=== PATIENT | female | born 1985 | race African-American/Black ===

== ENCOUNTER 2017-04-05 13:10 | Observation (INO) | payer SELFPAY ==
[2017-04-05] MEDS ORDERED: DUONEB 0.5 MG/3 MG ONE (13:22)
[2017-04-05] MEDS ORDERED: PRELONE Elixir 15 MG UDC PO ONE (13:37)
--- NOTE | 2017-04-05 13:38 | DR.SOBA ---
HPI - Time Seen Time seen: 13:30 - Primary Care Physician Primary Care Physician: ELI - HPI Comment HPI Comment: PATIENT WITH INS AND EXP WHEEZING. NO FEVER. COUGHING, PRODUCTIVE. CHEST PAIN PRESENT. - Complaints Chief Complaint Doctors Comments: INCREASING SOB AND WHEEZING. KNOWN ASTHMA PATIENT. Chief Complaint:: DIFF BREATHING WITH ASTHMA COMPLAINTS SINCE TUESDAY. INSP AND EXP WHEEZES Self Treatment fo Chief Complaint: OUT OF NEB MEDS AND STEROIDS - Reviewed Nurses Notes Reviewed: Yes - Source History Provided: Patient - Mode of Arrival Mode of Arrival: Wheelchair - Timing Onset of Chief Complaint: 04/04/17 - Duration Duration: Days - Context Onset:: At Rest PE Risk Factors:: None History of:: Asthma Prehospital Care:: Inhaled B2 - Modifying Factors Worsens:: Nothing Improves:: Nothing - Associated Signs and Symptoms Associated Signs and Symptoms: Wheeze, Cough, Nasal Congestion, Chest Pain - If Chest Pain Quality: Sharp Location: Chest Wall - If Cough Cough: Productive, Yellow PMH - PMH Past Medical History: Yes Past Medical History: Asthma Past Surgical History: Yes Surgical History: , Ortho Surgery - Family History History of Family Medical Conditions: Yes Family Medical History: Diabetes Mellitus, Cancer, [place], Coronary Artery Disease, Heart Failure, Hypertension - Social History Type of Tobacco Use: None Alcohol Use: None Do you use any recreational Drugs:: No Lives With: Family Lives Where: Home - infectious screening In the last 2 months have you had wt loss of >10#?: NO Have you had fever, night sweats or hemotysis?: No Have you traveled outside the country in the last 6 months?: No Isolation: Standard ROS - Review of Systems Constitutional: Weakness, Fatigue. negative: Chills, Fever Eyes: No Symptoms Reported. negative: Eye Pain, Discharge ENTM: Nose Congestion. negative: Ear Pain, Nose Discharge, Throat Pain Respiratoy: Productive Cough, Short of Breath, Wheezing. negative: Hemoptysis Cardiovascular: Chest Pain Gastrointestinal/Abdominal: Nausea Genitourinary: No Symptoms Reported Neurological: Headache, Weakness, Dizziness Musculoskeletal: Muscle Pain Integumentary: No Symptoms Reported Hematologic/Lymphatic: No Symptoms Reported Endocrine: No Symptoms Reported All Other Systems: Reviewed and Negative PE - Vital Signs Vitals: Temperature 99.3 F Pulse Rate [Right] 126 Pulse Rate 124 Respiratory Rate 22 Blood Pressure [Left Arm] 143/95 Blood Pressure 156/107 O2 Sat by Pulse Oximetry 94 - General Limitations: No Limitations General Appearance: Alert - Head Head Exam: Normal Inspection - Eyes Eye exam: Normal Appearance - ENT ENT Exam: Normal External Ear Exam - Neck Neck Exam: Trachea Midline. negative: Tenderness, Meningismus, Lymphadenopathy - Chest Chest Inspection: Symmetric Chest Wall Rise - Respiratory Respiratory Exam: Accessory Muscle Use, Chest Wall Tenderness, Prolonged Expiratory Phase, Respiratory Distress Respiratory Exam: Bilateral Wheezing, Bilateral Rhonchi, Upper Wheezing, Lower Wheezing, Lower Rhonchi - Cardiovascular Cardiovascular Exam: Tachycardia - Abdominal Exam Abdominal Exam: Normal Bowel Sounds, Soft. negative: Tenderness - Extremities Extremities Exam: Normal Inspection - Back Back Exam: Normal Inspection - Neurologic Neurological Exam: Alert, Oriented X3, CN II-XII Intact, Normal Gait, Reflexes Normal. negative: Motor Sensory Deficit - Psychiatric Psychiatric Exam: Anxious - Skin Skin Exam: Normal Color MDM - Additional Information Obtained Additional Information Obtained From: Family - Differential Diagnosis Differential Diagnosis: Asthma, Bronchitis, Pneumonia, Pneumothorax, Respiratory Failure Course - Treatment Treatment: SEE ORDERS. NEB TREATMENT WITH STERIODS IN ED. - Consultation Consultation Comments: DISCUSS PATIENT WITH DR. BOWLING. HE WILL ADMIT PATIENT. - Education/Counseling Education/Counseling: Patient, Family, Education Educated On: Treatment, Diagnosis, Needs for Follow Up ROR - Labs Reviewed Laboratory Results Reviewed?: Yes Result Diagrams: 04/05/17 16:25 04/05/17 16:56 Laboratory: Sample Site Lra 04/05/17 16:10 ABG pH 7.500 (7.35-7.45) H 04/05/17 16:10 ABG pCO2 31.0 mmHg (35.0-45.0) L 04/05/17 16:10 ABG pO2 58.0 mmHg (80.0-100.0) L 04/05/17 16:10 ABG HCO3 24.2 mmol/L (22-26) 04/05/17 16:10 ABG O2 Saturation 92.0 % (90-100) 04/05/17 16:10 ABG Base Excess 1.6 mmol/L (-2.0-2.0) 04/05/17 16:10 Martin Test Pos 04/05/17 16:10 A-a Gradient 53.0 mmHg 04/05/17 16:10 FiO2 21.000 04/05/17 16:10 Blood Gas Comments Irasema well cs 04/05/17 16:10 Sodium 139 mmol/L (136-145) 04/05/17 16:56 Corrected Sodium TNP 04/05/17 16:56 Potassium 3.5 mmol/L (3.5-5.1) 04/05/17 16:56 Chloride 106 mmol/L (98-107) 04/05/17 16:56 Carbon Dioxide 23.0 mmol/L (21-32) 04/05/17 16:56 BUN 8 mg/dL (7-18) 04/05/17 16:56 Creatinine 0.81 mg/dL (0.55-1.02) 04/05/17 16:56 Est GFR (MDRD) Af Amer > 60 (>60) 04/05/17 16:56 Est GFR (MDRD) Non-Af > 60 (>60) 04/05/17 16:56 Glucose 93 mg/dL (65-99) 04/05/17 16:56 Calcium 8.9 mg/dL (8.5-10.1) 04/05/17 16:56 Corrected Calcium TNP 04/05/17 16:56 Magnesium 1.9 mg/dL (1.7-2.9) 04/05/17 16:56 Total Bilirubin 0.30 mg/dL (0.2-1.0) 04/05/17 16:56 AST 17 Units/L (15-37) 04/05/17 16:56 ALT 15 Units/L (12-78) 04/05/17 16:56 Alkaline Phosphatase 78 Units/L (46-116) 04/05/17 16:56 Total Protein 7.5 g/dL (6.4-8.2) 04/05/17 16:56 Albumin 3.5 g/dL (3.4-5.0) 04/05/17 16:56 Globulin 4.0 g/dL (2.5-4.5) 04/05/17 16:56 Albumin/Globulin Ratio 0.9 Ratio (1.1-2.1) L 04/05/17 16:56 Specimen Type Clean catch urine 04/05/17 17:07 Urine Color Yellow (YELLOW) 04/05/17 17:07 Urine Appearance Cloudy (CLEAR) 04/05/17 17:07 Urine pH 7.0 (5.0 - 8.0) 04/05/17 17:07 Ur Specific [place] 1.010 (1.000-1.030) 04/05/17 17:07 Urine Protein 2+ (NEGATIVE) 04/05/17 17:07 Urine Glucose (UA) Negative (NEGATIVE) 04/05/17 17:07 Urine Ketones Negative (NEGATIVE) 04/05/17 17:07 Urine Occult Blood 5+ (NEGATIVE) 04/05/17 17:07 Urine Nitrite Positive (NEGATIVE) 04/05/17 17:07 Urine Bilirubin Negative (NEGATIVE) 04/05/17 17:07 Urine Urobilinogen Normal (NORMAL) 04/05/17 17:07 Ur Leukocyte Esterase 2+ (NEGATIVE) 04/05/17 17:07 Urine RBC 5-10 /HPF (NEGATIVE) 04/05/17 17:07 Urine WBC Tntc /HPF (NEGATIVE) 04/05/17 17:07 Ur Squamous Epith Cells Few /HPF (NEGATIVE) 04/05/17 17:07 Urine Bacteria 4+ /HPF (NEGATIVE) 04/05/17 17:07 Ur Culture Indicated? Yes/culture set up 04/05/17 17:07 - XRAY XRAY Interpreted by: Radiologist XRAY Findings: RPORT DISCUSS WITH PATIENT. - Diagnosis Discharge Problem: Tachycardia Acute asthma exacerbation Qualifiers: Asthma severity: moderate Asthma persistence: persistent Qualified Code(s): J45.41 - Moderate persistent asthma with (acute) exacerbation Acute bronchitis Qualifiers: Bronchitis organism: other organism Qualified Code(s): J20.8 - Acute bronchitis due to other specified organisms Dyspnea Qualifiers: Dyspnea type: acute respiratory distress Qualified Code(s): R06.03 - Acute respiratory distress - Discharge Plan Disposition: 09 ADMITTED INPATIENT Condition: Stable - Follow ups/Referrals - Instructions
[2017-04-05] MEDS ORDERED: ZOFRAN TAB 4 MG PO ONE (13:43)
[2017-04-05] MEDS ORDERED: ZOFRAN TAB 4 MG ONE (13:47)
[2017-04-05] MEDS ORDERED: PRELONE Elixir 15 MG UDC ONE (13:47)
[2017-04-05] MEDS ORDERED: DUONEB 0.5 MG/3 MG NEB ONE ×3 (14:06→15:50)
--- NOTE | 2017-04-05 14:28 | RAD ---
HISTORY: Cough. Single-view of the chest. Comparison: None. Findings: The trachea is midline. The cardiac silhouette is unremarkable. The lungs are hyperinflated with in creased perihilar interstitial opacities and associated bronchial cuffing; findings which can be seen with mild viral bronchitis of the tracheobronchial tree versus small airways disease. Please correla te. However, there is no lobar pneumonia or pulmonary mass. The lungs are otherwise clear without foc al infiltrate or pleural effusion. The bony thorax is unremarkable. IMPRESSION: No pneumothorax or lobar infiltrates observed. Radiographic findings of asthma/small airways disease, as above. Reported By:
[2017-04-05] MEDS ORDERED: VISTARIL PO ONE ×2 (15:26→15:29)
[2017-04-05] MEDS ORDERED: DECADRON JET NEB (RESP USE) NEB ONE ×2 (15:41→15:50)
[2017-04-05 16:20] LABS: ABG ALLEN TEST POS; ABG BASE EXCESS 1.6 mmol/L (-2.0-2.0); ABG HCO3 24.2 mmol/L (22-26)
[2017-04-05 16:55] LABS: ALANINE AMINOTRANSFERASE 15 Units/L (12-78); ALBUMIN 3.5 g/dL (3.4-5.0); ALKALINE PHOSPHATASE 78 Units/L (46-116); ASPARTATE AMINO TRANSFERASE 17 Units/L (15-37); BLOOD UREA NITROGEN 8 mg/dL (7-18); CALCIUM 8.9 mg/dL (8.5-10.1); CHLORIDE 106 mmol/L (98-107); CREATININE 0.81 mg/dL (0.55-1.02); MAGNESIUM 1.9 mg/dL (1.7-2.9); SODIUM 139 mmol/L (136-145); TOTAL PROTEIN 7.5 g/dL (6.4-8.2); eGFR BLACK RACES > 60 (>60); eGFR NON BLACK RACES > 60 (>60)
[2017-04-05] MEDS ORDERED: NS 1000 ML 1,000 ML ONE (17:04)
[2017-04-05 17:19] LABS: BILIRUBIN,URINE NEGATIVE (NEGATIVE); BLOOD/HEMOGLOBIN,URINE 5+ (NEGATIVE); GLUCOSE, URINE NEGATIVE (NEGATIVE); KETONES,URINE NEGATIVE (NEGATIVE); LEUKOCYTE ESTERASE ,URINE 2+ (NEGATIVE); NITRITES,URINE POSITIVE (NEGATIVE); PROTEIN,URINE 2+ (NEGATIVE); UROBILINOGEN,URINE NORMAL (NORMAL)
[2017-04-05 17:27] LABS: APPEARANCE,URINE CLOUDY (CLEAR); BACTERIA,URINE 4+ /HPF (NEGATIVE); COLOR,URINE YELLOW (YELLOW); SQUAMOUS EPITHELIAL CELL,UR FEW /HPF (NEGATIVE)
[2017-04-05 17:31] LABS: BASOPHILS % (AUTO) 0.4 % (0.2-1.0); EOSINOPHILS # (AUTO) 0.1 x10^3/uL (0.0-0.2); EOSINOPHILS % (AUTO) 1.1 % (0.9-2.9); HEMATOCRIT 34.7 % (36.0-47.0); HEMOGLOBIN 11.3 g/dL (12.0-16.0); LYMPHOCYTES # (AUTO) 0.9 X10^3/uL (1.3-2.9); LYMPHOCYTES % (AUTO) 9.4 % (21.0-51.0); MEAN CORPUSCULAR HEMOGLOBIN 22.5 pg (27.0-34.0); MEAN CORPUSCULAR HGB CONC 32.5 g/dL (33.0-35.0); MEAN CORPUSCULAR VOLUME 69.3 fL (80.0-100.0); MEAN PLATELET VOLUME 7.3 fL (7.4-11.0); MONOCYTES # (AUTO) 0.3 x10^3/uL (0.3-0.8); NEUTROPHILS # (AUTO) 8.1 x10^3/uL (2.2-4.8); NEUTROPHILS % (AUTO) 86.1 % (42.0-75.0); PLATELET COUNT 477 X10^3/uL (150.0-450.0); RED BLOOD COUNT 5.01 X10^6/uL (3.5-5.4); WHITE BLOOD COUNT 9.4 X10^3/uL (3.6-10.0)
[2017-04-05 18:14] LABS: ANISOCYTOSIS 1+; HYPOCHROMASIA 1+; MICROCYTOSIS 1+; PLATELET MORPHOLOGY COMMENT NORMAL (NORMAL)
[2017-04-05] MEDS: DUONEB 0.5 MG/3 MG NEB SCH (20:15)
[2017-04-05 20:35] VITALS: BMI 32.4
[2017-04-05] MEDS ORDERED: NS 500 ML IV 500 ML IV ONE (21:29)
[2017-04-05] MEDS: ROCEPHIN VIAL 1 GM 1 GM in NS 50 ML IV + SPIKE MINIBAG* 50 ML IV SCH (21:32)
[2017-04-05] MEDS ORDERED: ZOFRAN INJ 4 MG VIAL IVP PRN (22:04)
[2017-04-06] MEDS: TYLENOL 325 MG TAB PO PRN ×2 (00:30→07:52)
[2017-04-06] MEDS: DUONEB 0.5 MG/3 MG NEB SCH ×4 (00:49→12:02)
[2017-04-06 05:27] LABS: BASOPHILS % (AUTO) 0.4 % (0.2-1.0); EOSINOPHILS % (AUTO) 0.2 % (0.9-2.9); HEMATOCRIT 31.1 % (36.0-47.0); HEMOGLOBIN 10.3 g/dL (12.0-16.0); LYMPHOCYTES # (AUTO) 1.9 X10^3/uL (1.3-2.9); MEAN CORPUSCULAR HEMOGLOBIN 24.7 pg (27.0-34.0); MEAN CORPUSCULAR VOLUME 74.8 fL (80.0-100.0); MEAN PLATELET VOLUME 7.5 fL (7.4-11.0); MONOCYTES # (AUTO) 0.6 x10^3/uL (0.3-0.8); MONOCYTES % (AUTO) 6.4 % (0.0-13.0); NEUTROPHILS # (AUTO) 6.2 x10^3/uL (2.2-4.8); PLATELET COUNT 440 X10^3/uL (150.0-450.0); RED BLOOD COUNT 4.16 X10^6/uL (3.5-5.4); RED CELL DISTRIBUTION WIDTH 16.9 % (11.6-16.5); WHITE BLOOD COUNT 8.8 X10^3/uL (3.6-10.0)
[2017-04-06 05:30] LABS: BLOOD UREA NITROGEN 7 mg/dL (7-18); CALCIUM 8.8 mg/dL (8.5-10.1); CARBON DIOXIDE 22.5 mmol/L (21-32); CHLORIDE 106 mmol/L (98-107); COR NA(FOR HYPERGLY) 142 mmol/L (136-145); CREATININE 0.89 mg/dL (0.55-1.02); SODIUM 142 mmol/L (136-145); eGFR BLACK RACES > 60 (>60); eGFR NON BLACK RACES > 60 (>60)
[2017-04-06 05:44] LABS: HYPOCHROMASIA SLIGHT; PLATELET MORPHOLOGY COMMENT NORMAL (NORMAL)
[2017-04-06 05:45] LABS: ANISOCYTOSIS SLIGHT; MICROCYTOSIS SLIGHT
[2017-04-06] MEDS ORDERED: K-LYTE EFFERVESCENT PO PRN (05:51)
[2017-04-06] MEDS ORDERED: K-DUR TAB 20 MEQ PO PRN (05:51)
[2017-04-06] MEDS ORDERED: POTASSIUM CHLORIDE LIQ 20 MEQ UDC PO PRN (05:51)
[2017-04-06] MEDS ORDERED: K-RIDER 10 MEQ/NS 100 ML 10 MEQ/100 ML BAG IV PRN (05:51)
[2017-04-06] MEDS ORDERED: SOLU-Medrol 40 MG VIAL IVP SCH (09:00)
[2017-04-06] MEDS: ROCEPHIN VIAL 1 GM 1 GM in NS 50 ML IV + SPIKE MINIBAG* 50 ML IV SCH (10:00)
[2017-04-06 12:34] VITALS: BP 132/82
--- NOTE | 2017-04-12 10:51 | DR.CARTERS ---
Short Stay Summary - Admission Date Date of Admission: 04/05/17 - Discharge Date Discharge Date: 04/06/17 - Admission Diagnoses (1) Acute asthma exacerbation Status: Acute (2) Urinary tract infection Status: Acute - Hospital Course Hospital Course: DAY 1 OF STAY: IS A 32 YEAR OLD FEMALE WHO PRESENTED TO THE EMERGENCY ROOM WITH COMPLAINTS OF DIFFICULTY BREATHING, CHEST PAIN, AND WHEEZING THAT BEGAN ONE DAY PRIOR TO ARRIVAL. PATIENT REPORTED A HISTORY OF ASTHMA. ON ARRIVAL TO ER, SHE WAS NOTED WITH INSPIRATORY AND EXPIRATORY WHEEZING AND PRODUCTIVE COUGH. SHE DENIED FEVER. PATIENT REPORTED BEING OUT OF NEBULIZER TREATMENTS AND STEROIDS. ASSOCIATED SYMPTOMS WERE WEAKNESS, FATIGUE, NASAL CONGESTION, NAUSEA, HEADACHE, AND DIZZINESS. ON ARRIVAL, HER VITAL SIGNS WERE 99.3-126-28-94%-156/107. LABS AND XRAY WERE OBTAINED. ABNORMAL LAB VALUES INCLUDE THE FOLLOWING: Hgb 11.3, Hct 34.7, MCV 69.3, MCH 22.5, MCHC 32.5, RDW 17.0, Plt Count 477, Plt Count Comment Increased A, MPV 7.3, A/G Ratio 0.9. ABG REPORTED: PH 7.500, PCO2 31.0, PO2 58.0. URINALYSIS REPORTED: [place] Cloudy, Protein 2+, Occult Blood 5+, Nitrate Positive, Leuk Violeta 2+, RBC 5-10, WBC TNTC , Squam Epith Cells Few, Bacteria 4+. URINE CULTURE WAS OBTAINED. CHEST XRAY REPORTED: No pneumothorax or lobar infiltrates observed. Radiographic findings of asthma/small airways disease. SHE WAS GIVEN PRELONE ELIXIR X 1, ZOFRAN 4MG PO X 1, DUONEB X 3, VISTARIL 25MG PO X 1, DECADRON IN NEB [place] X 1 IN ER. ONLY MILD IMPROVEMENT IN SYMPTOMS WERE NOTED. WE ADMITTED PATIENT FOR FURTHER TREATMENT AND EVALUATION OF ACUTE ASTHMA EXACERBATION, ACUTE BRONCHITIS, AND UTI. WE PLANNED TO FOLLOW UP WITH AM LABS AND CONTINUE TO MONITOR PATIENT. DAY 2 OF STAY: PATIENT IS ALERT AND ORIENTED, SITTING UP IN BED ON MORNING ROUNDS. PATIENT DENIES SHORTNESS OF BREATH AND REPORTS FEELING MUCH BETTER TODAY. ON EXAMINATION, PATIENT CONTINUES WITH WHEEZING. ABDOMEN IS ROUND, SOFT, AND NON-TENDER WITH NORMAL BOWEL SOUNDS NOTED IN ALL QUADRANTS. HER VITAL SIGNS THIS MORNING ARE 128/82. A CBC AND CMP WAS OBTAINED. ABNORMAL LAB VALUES INCLUDE THE FOLLOWING: HGB 10.3, HCT 31.1, POTASSIUM 3.3, GLUCOSE 120. WE PLANNED FOR DISCHARGE. INSTRUCTIONS FOR FOLLOW UP AND MEDICATIONS WERE DISCUSSED WITH PATIENT. SHE VERBALIZED UNDERSTANDING OF ALL ORDERS. NEW PRESCRIPTIONS WERE GIVEN FOR CIPRO 500MG PO BID X 10 DAYS, ALBUTEROL JN TX TID, PROVENTIL INHALER, CLARITIN 10MG PO DAILY, AND A MEDROL DOSE PACK. PATIENT HAS INSTRUCTIONS TO FOLLOW UP IN OUR OFFICE NEXT WEEK. PATIENT DISCHARGED TO HOME WITH FAMILY IN STABLE CONDITION. - Discharge Medications Discharge Medications: Albuterol Sulfate [Proventil HFA Inhaler 6.7 gm] 2 inh IN Q6H PRN #1 each [Rx] Methylprednisolone Dosepak 4Mg [MEDROL DOSEPAK (4 mg tab x 21)] 1 karina PO ONCE # 1 karina 04/05/17 [Rx] Albuterol Neb 2.5MG/ 3Ml [Proventil Neb Tx 0.083% 2.5MG/ 3Ml] 1 nebule INH TID # 90 nebule 04/06/17 [Rx] Ciprofloxacin HCl [CIPRO 500 MG TAB *] 500 mg PO Q12H #20 tab 04/06/17 [Rx] Loratadine [Claritin] 10 mg PO DAILY #30 tab 04/06/17 [Rx] Nebulizer [Aeroneb Go Nebulizer] 1 each MC ONCE #1 each 04/06/17 [Rx] - Discharge Plan Disposition: 01 HOME, SELF-CARE Condition: Stable Prescriptions: Albuterol Neb 2.5MG/ 3Ml [Proventil Neb Tx 0.083% 2.5MG/ 3Ml] 1 nebule INH TID # 90 nebule Albuterol Sulfate [Proventil HFA Inhaler 6.7 gm] 2 inh IN Q6H PRN #1 each PRN Reason: Asthma Symptoms Ciprofloxacin HCl [CIPRO 500 MG TAB *] 500 mg PO Q12H #20 tab Loratadine [Claritin] 10 mg PO DAILY #30 tab Methylprednisolone Dosepak 4Mg [MEDROL DOSEPAK (4 mg tab x 21)] 1 karina PO ONCE # 1 karina Nebulizer [Aeroneb Go Nebulizer] 1 each MC ONCE #1 each - Follow up/Referrals Follow up/Referrals: Geovanna Holly [Nurse Practitioner] - 04/13/17 9:40 am - Instructions Instructions: Smoking Cessation, Tips for Success, [id number], How to Use a Nebulizer, Acute Bronchitis, [id number], Asthma, Acute Bronchospasm Additional Instructions: ACTIVITY TOLERATED. DIET TOLERATED.
== END 2017-04-06 14:00 | disposition home or self-care (01) ==
LOC: ER 13:49 → MED/SURG 18:26
PROVIDERS: ADMIT Internal Medicine; ATTEND Internal Medicine
DX: J45.41 Moderate persistent asthma with (acute) exacerbation (principal); J20.8 Acute bronchitis due to other specified organisms; N39.0 Urinary tract infection, site not specified; R06.02 Shortness of breath; R07.89 Other chest pain; R06.03 Acute respiratory distress; D64.89 Other specified anemias; B96.29 Other Escherichia coli [E. coli] as the cause of diseases classified elsewhere
CPT/HCPCS: 36415; 36600; 71010; 80048; 80053; 81001; 82803; 83735; 84132; 85025; 87086; 87088; 87186; 94640; 94760; 96365; 99284; A4216; A4222; Q0177; S0181; G0378; J0696; J2405; J2920; J7620

== ENCOUNTER 2017-04-15 09:41 | Emergency (ER) | payer SELFPAY ==
[~2017-04-15 09:41] MED LIST: Atrovent NEB TX 0.02% ONE
[2017-04-15] MEDS ORDERED: DUONEB 0.5 MG/3 MG NEB ONE (09:44)
[2017-04-15] MEDS ORDERED: XOPENEX 1.25 MG/3 ML NEBULE NEB ONE (09:45)
[2017-04-15] MEDS ORDERED: SOLU-Medrol 125 MG VIAL IVP ONE (09:45)
[2017-04-15] MEDS ORDERED: PULMICORT NEB TX 0.5 MG NEB ONE (09:46)
--- NOTE | 2017-04-15 09:46 | DR.GENAD ---
HPI - HPI Comment HPI Comment: WORSE SINCE LAST NIGHT. - Complaint/Symptoms Chief Complaint Doctors Comments: INCREASING SOB, WHEEZING AND PRODUCTIVE COUGH TIMES 2 DAYS - Nurses notes reviewed Nurses Notes Review: Yes - Source History Provided: Patient, Family Member - Mode of Arrival Mode of Arrival: Wheelchair - Timing Came on: Suddenly - Duration Duration: Constant Duration: Hours - Severity Severity: Moderate PMH - PMH Past Medical History: Asthma Past Surgical History: Yes Surgical History: , Ortho Surgery - Family History Family Medical History: Diabetes Mellitus, Cancer, [place], Coronary Artery Disease, Heart Failure, Hypertension - Social History Do you use any recreational Drugs:: No ROS - Review of Systems Constitutional: No Symptoms Reported, Fatigue Eyes: No Symptoms Reported ENTM: No Symptoms Reported. negative: Ear Pain, Nose Discharge, Nose Congestion , Throat Pain Respiratoy: Productive Cough, Short of Breath, Wheezing Cardiovascular: Chest Pain Gastrointestinal/Abdominal: No Symptoms Reported Genitourinary: No Symptoms Reported Neurological: No Symptoms Reported Musculoskeletal: No Symptoms Reported Integumentary: No Symptoms Reported Hematologic/Lymphatic: No Symptoms Reported Endocrine: No Symptoms Reported All Other Systems: Reviewed and Negative PE - Vital Signs Vitals: Temperature 98.5 F Pulse Rate [Left Brachial] 123 Pulse Rate 124 Respiratory Rate 20 Blood Pressure [Left Arm] 149/76 Blood Pressure 162/97 O2 Sat by Pulse Oximetry 97 - General Limitations: No Limitations General Appearance: Alert, In Distress - Head Head Exam: Normal Inspection - Eyes Eye exam: Normal Appearance - ENT ENT Exam: Normal External Ear Exam External Ear Exam: Normal External Inspection TM/Canal Exam: Bilateral Normal Nose Exam: Normal Nose Exam Mouth Exam: Normal Inspection Throat Exam: Normal Inspection - Neck Neck Exam: Trachea Midline - Chest Chest Inspection: Symmetric Chest Wall Rise - Respiratory Respiratory Exam: Normal Lung Sounds Bilat Respiratory Exam: Upper Wheezing, Upper Rhonchi, Lower Wheezing, Lower Rhonchi - Cardiovascular Cardiovascular Exam: Regular Rate - Abdominal Exam Abdominal Exam: Normal Bowel Sounds, Soft. negative: Tenderness - Extremities Extremities Exam: Normal Inspection - Back Back Exam: Normal Inspection - Neurologic Neurological Exam: Alert, Oriented X3 - Psychiatric Psychiatric Exam: Anxious - Skin Skin Exam: Normal Color MDM - Additional Information Additional Information Obtained From: Family - Differential Diagnosis Differential Diagnosis: ASTHMA EXACERBATION, BRONCHITIS Course - Treatment Treatment: NEB RX WITH XOPENEX IN ED.SEE ORDERS. STILL TACHYCARDIA AND SOB. - Consultation Consultation Comments: PATIENT ADMITTED TO DR. BOWLING FOR OBS. - Education/Counseling Education/Counseling: Patient, Education Educated On: Treatment, Diagnosis ROR - Labs Reviewed Laboratory Results Reviewed?: Yes Result Diagrams: 04/17/17 04:50 04/17/17 04:50 Laboratory: WBC 9.9 X10^3/uL (3.6-10.0) 04/15/17 09:48 RBC 4.89 X10^6/uL (3.5-5.4) 04/15/17 09:48 Hgb 10.9 g/dL (12.0-16.0) L 04/15/17 09:48 Hct 33.7 % (36.0-47.0) L 04/15/17 09:48 MCV 69.0 fL (80.0-100.0) L 04/15/17 09:48 MCH 22.3 pg (27.0-34.0) L 04/15/17 09:48 MCHC 32.3 g/dL (33.0-35.0) L 04/15/17 09:48 RDW 16.9 % (11.6-16.5) H 04/15/17 09:48 Plt Count 408 X10^3/uL (150.0-450.0) 04/15/17 09:48 Plt Count Comment Adequate (ADEQUATE) 04/15/17 09:48 MPV 7.1 fL (7.4-11.0) L 04/15/17 09:48 Neut % 83.1 % (42.0-75.0) H 04/15/17 09:48 Lymph % 11.2 % (21.0-51.0) L 04/15/17 09:48 [place] % 3.4 % (0.0-13.0) 04/15/17 09:48 Eos % 1.6 % (0.9-2.9) 04/15/17 09:48 Baso % 0.7 % (0.2-1.0) 04/15/17 09:48 Neut # 8.2 x10^3/uL (2.2-4.8) H 04/15/17 09:48 Lymph # 1.1 X10^3/uL (1.3-2.9) L 04/15/17 09:48 [place] # 0.3 x10^3/uL (0.3-0.8) 04/15/17 09:48 Eos # 0.2 x10^3/uL (0.0-0.2) 04/15/17 09:48 Baso # 0.1 X10^3/uL (0.0-0.1) 04/15/17 09:48 Absolute Nucleated RBC 0.1 /100WBC 04/15/17 09:48 Plt Morphology Comment Normal (NORMAL) 04/15/17 09:48 RBC Morphology Abnormal (NORMAL) A 04/15/17 09:48 Hypochromasia 1+ A 04/15/17 09:48 Microcytosis 1+ A 04/15/17 09:48 Sample Site Lr 04/15/17 11:55 ABG pH 7.440 (7.35-7.45) 04/15/17 11:55 ABG pCO2 37.0 mmHg (35.0-45.0) 04/15/17 11:55 ABG pO2 68.0 mmHg (80.0-100.0) L 04/15/17 11:55 ABG HCO3 25.1 mmol/L (22-26) 04/15/17 11:55 ABG O2 Saturation 94.0 % (90-100) 04/15/17 11:55 ABG Base Excess 1.1 mmol/L (-2.0-2.0) 04/15/17 11:55 Martin Test Pos 04/15/17 11:55 A-a Gradient 35.0 mmHg 04/15/17 11:55 FiO2 21 04/15/17 11:55 Blood Gas Comments Pt samantha well. cdn/hm 04/15/17 11:55 Sodium 136 mmol/L (136-145) 04/15/17 09:48 Corrected Sodium TNP 04/15/17 09:48 Potassium 4.0 mmol/L (3.5-5.1) 04/15/17 09:48 Chloride 103 mmol/L (98-107) 04/15/17 09:48 Carbon Dioxide 25.0 mmol/L (21-32) 04/15/17 09:48 BUN 8 mg/dL (7-18) 04/15/17 09:48 Creatinine 0.80 mg/dL (0.55-1.02) 04/15/17 09:48 Est GFR (MDRD) Af Amer > 60 (>60) 04/15/17 09:48 Est GFR (MDRD) Non-Af > 60 (>60) 04/15/17 09:48 Glucose 93 mg/dL (65-99) 04/15/17 09:48 Calcium 8.8 mg/dL (8.5-10.1) 04/15/17 09:48 Corrected Calcium TNP 04/15/17 09:48 Total Bilirubin 0.20 mg/dL (0.2-1.0) 04/15/17 09:48 AST 19 Units/L (15-37) 04/15/17 09:48 ALT 16 Units/L (12-78) 04/15/17 09:48 Alkaline Phosphatase 84 Units/L (46-116) 04/15/17 09:48 Total Protein 7.4 g/dL (6.4-8.2) 04/15/17 09:48 Albumin 3.6 g/dL (3.4-5.0) 04/15/17 09:48 Globulin 3.8 g/dL (2.5-4.5) 04/15/17 09:48 Albumin/Globulin Ratio 0.9 Ratio (1.1-2.1) L 04/15/17 09:48 - XRAY XRAY Interpreted by: Radiologist XRAY Findings: REPORT DISCUSS WITH PATIENT. - Diagnosis Discharge Problem: Acute asthma exacerbation, Acute bronchitis, Dyspnea, Tachycardia - Discharge Plan Disposition: ADMITTED INPATIENT Condition: Stable - Follow ups/Referrals - Instructions
[2017-04-15 10:01] VITALS: BMI 32.4
[2017-04-15 10:02] LABS: BASOPHILS # (AUTO) 0.1 X10^3/uL (0.0-0.1); BASOPHILS % (AUTO) 0.7 % (0.2-1.0); EOSINOPHILS # (AUTO) 0.2 x10^3/uL (0.0-0.2); EOSINOPHILS % (AUTO) 1.6 % (0.9-2.9); HEMATOCRIT 33.7 % (36.0-47.0); HEMOGLOBIN 10.9 g/dL (12.0-16.0); LYMPHOCYTES # (AUTO) 1.1 X10^3/uL (1.3-2.9); LYMPHOCYTES % (AUTO) 11.2 % (21.0-51.0); MEAN CORPUSCULAR HEMOGLOBIN 22.3 pg (27.0-34.0); MEAN CORPUSCULAR HGB CONC 32.3 g/dL (33.0-35.0); MEAN PLATELET VOLUME 7.1 fL (7.4-11.0); MONOCYTES # (AUTO) 0.3 x10^3/uL (0.3-0.8); MONOCYTES % (AUTO) 3.4 % (0.0-13.0); NEUTROPHILS # (AUTO) 8.2 x10^3/uL (2.2-4.8); NEUTROPHILS % (AUTO) 83.1 % (42.0-75.0); PLATELET COUNT 408 X10^3/uL (150.0-450.0); RED BLOOD COUNT 4.89 X10^6/uL (3.5-5.4); RED CELL DISTRIBUTION WIDTH 16.9 % (11.6-16.5); WHITE BLOOD COUNT 9.9 X10^3/uL (3.6-10.0)
[2017-04-15] MEDS ORDERED: SOLU-Medrol 125 MG VIAL ONE (10:02)
[2017-04-15 10:11] LABS: HYPOCHROMASIA 1+; MICROCYTOSIS 1+; PLATELET MORPHOLOGY COMMENT NORMAL (NORMAL)
[2017-04-15 10:15] LABS: ALANINE AMINOTRANSFERASE 16 Units/L (12-78); ALBUMIN 3.6 g/dL (3.4-5.0); ALKALINE PHOSPHATASE 84 Units/L (46-116); ASPARTATE AMINO TRANSFERASE 19 Units/L (15-37); BLOOD UREA NITROGEN 8 mg/dL (7-18); CALCIUM 8.8 mg/dL (8.5-10.1); CHLORIDE 103 mmol/L (98-107); SODIUM 136 mmol/L (136-145); TOTAL PROTEIN 7.4 g/dL (6.4-8.2); eGFR BLACK RACES > 60 (>60); eGFR NON BLACK RACES > 60 (>60)
[2017-04-15] MEDS ORDERED: SOLU-Medrol 125 MG VIAL IM ONE (10:20)
--- NOTE | 2017-04-15 11:11 | RAD ---
HISTORY: Asthma exacerbation Study: Single-view of the chest Comparison: 04/05/2017 Findings: The trachea is midline. The cardiac silhouette is unremarkable. Increased perihilar markings and mi ld bronchial wall thickening are noted. Atelectasis and/or infiltrate are noted within the right lowe r lobe. Recommend clinical correlation and continued follow-up as indicated for further evaluation . IMPRESSION: 1. Increased perihilar markings and bronchial wall thickening with right basilar atelectasis and/or infiltrate. Reported By:
[2017-04-15 12:24] LABS: ABG BASE EXCESS 1.1 mmol/L (-2.0-2.0); ABG HCO3 25.1 mmol/L (22-26)
[2017-04-15 12:25] LABS: ABG ALLEN TEST POS; FRACTIONATED INSPIRED OXYGEN 21
[2017-04-15] MEDS ORDERED: DECADRON INJ IM ONE (12:30)
[2017-04-15] MEDS ORDERED: VISTARIL PO ONE ×2 (12:31→12:51)
[2017-04-15] MEDS ORDERED: ROCEPHIN VIAL 1 GM 1 GM in NS 50 ML IV + SPIKE MINIBAG* 50 ML IV ONE (12:32)
[2017-04-15] MEDS ORDERED: NS 1000 ML 1,000 ML ONE (12:50)
[2017-04-15] MEDS ORDERED: ROCEPHIN 1 GM IV PREMIX 50 ML IV ONE (12:51)
[2017-04-15] MEDS: NS 1000 ML 1,000 ML IV SCH (12:58)
[2017-04-15] MEDS: XOPENEX 1.25 MG/3 ML NEBULE NEB SCH ×2 (16:50→20:27)
[2017-04-15] MEDS ORDERED: DUONEB 0.5 MG/3 MG NEB SCH (17:00)
[2017-04-15 21:30] LABS: BILIRUBIN,URINE NEGATIVE (NEGATIVE); BLOOD/HEMOGLOBIN,URINE NEGATIVE (NEGATIVE); GLUCOSE, URINE 4+ (NEGATIVE); KETONES,URINE 2+ (NEGATIVE); LEUKOCYTE ESTERASE ,URINE NEGATIVE (NEGATIVE); NITRITES,URINE NEGATIVE (NEGATIVE); PROTEIN,URINE NEGATIVE (NEGATIVE); UROBILINOGEN,URINE NORMAL (NORMAL)
[2017-04-15] MEDS: CIPRO IV 200 MG PREMIX* 200 MG/100 ML BAG IV SCH (21:33)
[2017-04-15] MEDS: AMBIEN PO PRN (21:33)
[2017-04-15 21:59] LABS: APPEARANCE,URINE CLEAR (CLEAR); BACTERIA,URINE NEGATIVE /HPF (NEGATIVE); COLOR,URINE YELLOW (YELLOW); RBC,URINE 0-3 /HPF (NEGATIVE); SQUAMOUS EPITHELIAL CELL,UR MODERATE /HPF (NEGATIVE)
[2017-04-16] MEDS: PHENERGAN INJ 25 MG IV PRN ×4 (00:40→21:14)
[2017-04-16] MEDS: NS 1000 ML 1,000 ML IV SCH ×2 (05:18→21:10)
[2017-04-16 05:58] LABS: BASOPHILS % (AUTO) 0.2 % (0.2-1.0); HEMATOCRIT 30.2 % (36.0-47.0); HEMOGLOBIN 9.7 g/dL (12.0-16.0); LYMPHOCYTES # (AUTO) 1.4 X10^3/uL (1.3-2.9); LYMPHOCYTES % (AUTO) 6.6 % (21.0-51.0); MEAN CORPUSCULAR HEMOGLOBIN 22.6 pg (27.0-34.0); MEAN CORPUSCULAR HGB CONC 32.1 g/dL (33.0-35.0); MEAN CORPUSCULAR VOLUME 70.2 fL (80.0-100.0); MEAN PLATELET VOLUME 7.8 fL (7.4-11.0); MONOCYTES # (AUTO) 0.9 x10^3/uL (0.3-0.8); MONOCYTES % (AUTO) 4.1 % (0.0-13.0); NEUTROPHILS # (AUTO) 19.6 x10^3/uL (2.2-4.8); NEUTROPHILS % (AUTO) 89.1 % (42.0-75.0); PLATELET COUNT 408 X10^3/uL (150.0-450.0); RED CELL DISTRIBUTION WIDTH 17.1 % (11.6-16.5)
[2017-04-16 06:10] LABS: ALANINE AMINOTRANSFERASE 11 Units/L (12-78); ALBUMIN 3.1 g/dL (3.4-5.0); ALKALINE PHOSPHATASE 81 Units/L (46-116); ASPARTATE AMINO TRANSFERASE 14 Units/L (15-37); BLOOD UREA NITROGEN 8 mg/dL (7-18); CARBON DIOXIDE 20.5 mmol/L (21-32); CHLORIDE 107 mmol/L (98-107); COR CA(FOR HYPOALB) 9.7 mg/dL (8.5-10.1); COR NA(FOR HYPERGLY) 138 mmol/L (136-145); CREATININE 0.79 mg/dL (0.55-1.02); SODIUM 137 mmol/L (136-145); TOTAL PROTEIN 6.7 g/dL (6.4-8.2); eGFR BLACK RACES > 60 (>60); eGFR NON BLACK RACES > 60 (>60)
[2017-04-16 06:31] LABS: PLATELET MORPHOLOGY COMMENT NORMAL (NORMAL)
[2017-04-16] MEDS: XOPENEX 1.25 MG/3 ML NEBULE NEB SCH ×4 (08:00→20:16)
[2017-04-16] MEDS: SOLU-Medrol 40 MG VIAL IVP SCH ×2 (08:54→16:57)
[2017-04-16] MEDS: CIPRO IV 200 MG PREMIX* 200 MG/100 ML BAG IV SCH ×2 (08:54→21:10)
[2017-04-16] MEDS ORDERED: ROCEPHIN VIAL 1 GM 1 GM in NS 50 ML IV + SPIKE MINIBAG* 50 ML IV SCH (09:00)
[2017-04-16] MEDS: MORPHINE SULFATE INJ 2 MG INJ IVP PRN ×2 (14:36→21:14)
[2017-04-16] MEDS ORDERED: SALINE 0.9% 3 ML NEB TX ONE (20:01)
[2017-04-16] MEDS: AMBIEN PO PRN (21:10)
[2017-04-17] MEDS: SOLU-Medrol 40 MG VIAL IVP SCH ×4 (03:16→16:36)
[2017-04-17] MEDS: NS 1000 ML 1,000 ML IV SCH ×2 (04:52→19:18)
[2017-04-17] MEDS: PHENERGAN INJ 25 MG IV PRN ×2 (05:30→14:09)
[2017-04-17] MEDS: MORPHINE SULFATE INJ 2 MG INJ IVP PRN ×3 (05:30→20:24)
[2017-04-17 06:19] LABS: BASOPHILS # (AUTO) 0.1 X10^3/uL (0.0-0.1); BASOPHILS % (AUTO) 0.3 % (0.2-1.0); HEMATOCRIT 28.4 % (36.0-47.0); HEMOGLOBIN 9.1 g/dL (12.0-16.0); LYMPHOCYTES # (AUTO) 3.5 X10^3/uL (1.3-2.9); LYMPHOCYTES % (AUTO) 14.7 % (21.0-51.0); MEAN CORPUSCULAR HEMOGLOBIN 22.5 pg (27.0-34.0); MEAN CORPUSCULAR HGB CONC 32.1 g/dL (33.0-35.0); MEAN CORPUSCULAR VOLUME 70.1 fL (80.0-100.0); MEAN PLATELET VOLUME 7.6 fL (7.4-11.0); MONOCYTES % (AUTO) 4.2 % (0.0-13.0); NEUTROPHILS % (AUTO) 80.8 % (42.0-75.0); PLATELET COUNT 381 X10^3/uL (150.0-450.0); RED BLOOD COUNT 4.05 X10^6/uL (3.5-5.4); RED CELL DISTRIBUTION WIDTH 17.5 % (11.6-16.5); WHITE BLOOD COUNT 23.6 X10^3/uL (3.6-10.0)
[2017-04-17 06:37] LABS: ALANINE AMINOTRANSFERASE 13 Units/L (12-78); ALBUMIN 2.9 g/dL (3.4-5.0); ALKALINE PHOSPHATASE 73 Units/L (46-116); ASPARTATE AMINO TRANSFERASE 9 Units/L (15-37); BLOOD UREA NITROGEN 9 mg/dL (7-18); CALCIUM 8.5 mg/dL (8.5-10.1); CHLORIDE 110 mmol/L (98-107); COR CA(FOR HYPOALB) 9.4 mg/dL (8.5-10.1); CREATININE 0.78 mg/dL (0.55-1.02); SODIUM 141 mmol/L (136-145); TOTAL PROTEIN 6.3 g/dL (6.4-8.2); eGFR BLACK RACES > 60 (>60); eGFR NON BLACK RACES > 60 (>60)
[2017-04-17 06:40] LABS: HYPOCHROMASIA 1+; MICROCYTOSIS 1+; PLATELET MORPHOLOGY COMMENT NORMAL (NORMAL); POIKILOCYTOSIS 1+
--- NOTE | 2017-04-17 07:13 | RAD ---
HISTORY: Shortness of breath Study: Single-view chest Comparison: 04/15/2017 Findings: The trachea is midline. The cardiac silhouette is unremarkable. Discoid atelectasis of the right ba se is noted to be present. Otherwise, the right and left chest are clear. The bony thorax is unremar kable. IMPRESSION: 1. Discoid atelectasis of the right base Reported By:
[2017-04-17] MEDS: CIPRO IV 200 MG PREMIX* 200 MG/100 ML BAG IV SCH ×2 (08:31→20:24)
[2017-04-17] MEDS: ROCEPHIN VIAL 1 GM 1 GM in NS 100 ML IV + SPIKE MINIBAG* 100 ML IV SCH (08:31)
[2017-04-17] MEDS: XOPENEX 1.25 MG/3 ML NEBULE NEB SCH ×4 (08:34→20:17)
--- NOTE | 2017-04-17 19:29 | DR.H&P ---
H&P - History & Physical for Day of: H&P Date: 04/15/17 - Chief Complaint Chief Complaint: SHORT OF BREATH, COUGH - Allergies Allergies/Adverse Reactions: Allergies Allergy/AdvReac Type Severity Reaction Status Date / Time No Known Drug Allergies Allergy Verified 04/05/17 13:26 - History of Present Illness History of Present Illness: IS A 32 YEAR OLD FEMALE WHO PRESENTED TO THE EMERGENCY ROOM WITH COMPLAINTS OF DIFFICULTY BREATHING, PRODUCTIVE COUGH, AND WHEEZING THAT BEGAN TWO DAYS PRIOR TO ARRIVAL. PATIENT REPORTED A HISTORY OF ASTHMA. PATIENT WAS RECENTLY TREATED AND DISCHARGE FROM THE HOSPITAL WITH THE SAME SYMPTOMS. ON ARRIVAL TO ER, SHE WAS NOTED WITH INSPIRATORY AND EXPIRATORY WHEEZING AND PRODUCTIVE COUGH. SHE DENIED FEVER. ON ARRIVAL, HER VITAL SIGNS WERE 98.5-129-32-90%-162/97. LABS AND XRAY WERE OBTAINED. ABNORMAL LAB VALUES INCLUDE THE FOLLOWING: Hgb 10.9, Hct 33.7. ABG REPORTED: PH 7.440, PCO2 37.0, PO2 68.0. CHEST XRAY WAS OBTAINED AND REPORTED INCREASED PERIHILAR MARKINGS AND BRONCHIAL WALL THICKENING WITH RIGHT BASILAR ATELECTASIS AND/OR INFILTRATE. SHE WAS GIVEN NEB TREATMENTS IN ER. ONLY MILD IMPROVEMENT IN SYMPTOMS WERE NOTED. WE ADMITTED PATIENT FOR FURTHER TREATMENT AND EVALUATION OF ACUTE ASTHMA EXACERBATION, ACUTE BRONCHITIS, AND TACHYCARDIA. SHE WAS STARTED ON CIPRO 200MG IV Q12H, SOLU-MEDROL 80MG IV Q8H, AND NORMAL SALINE AT 80ML/HR. WE PLANNED TO FOLLOW UP WITH AM LABS AND CONTINUE TO MONITOR PATIENT. - Past Medical History Past Medical History: Asthma - Past Surgical History Surgical History: , Ortho Surgery - Family History Family Medical History: Diabetes Mellitus, Cancer, [place], Coronary Artery Disease, Heart Failure, Hypertension - Social History Does patient currently use any type of tobacco product: Yes Have you used tobacco products in the last 12 months: Yes Type of Tobacco Use: Cigarettes Does any household member use tobacco: Yes Alcohol Use: None Drug Use: Marijuana - Review of Systems Constitutional: No Symptoms Reported Eyes: No Symptoms Reported ENT: No Symptoms Reported Respiratory: See HPI, Cough, Shortness of Breath, Sputum, Wheezing Cardiovascular: Chest Pain, Other (TACHYCARDIA ) Gastrointestinal: No Symptoms Reported Genitourinary: No Symptoms Reported Musculoskeletal: No Symptoms Reported Skin: No Symptoms Reported Neurological: No Symptoms Reported - Physical Exam Vital Signs: Temperature 98 F Pulse Rate [Left Brachial] 95 Pulse Rate 99 Respiratory Rate 20 Blood Pressure [Left Arm] 152/71 Blood Pressure 162/97 O2 Sat by Pulse Oximetry 98 Oriented: Normal Eyes: Normal Ear: Normal Nose: Normal Throat: Normal Respiratory: Wheezes Throughout Cardiovascular: Tachycardia : Normal Auscultation: Bowel Sounds: Normal Palpation: Normal Tenderness: Normal Skin: Normal Musculoskeletal: Normal Psychiatric: Normal Mood Description: Calm Affect: Normal Speech Pattern: Clear - Assessment/Plan (1) Acute asthma exacerbation Qualifiers: Asthma severity: moderate Asthma persistence: persistent Qualified Code(s ): J45.41 - Moderate persistent asthma with (acute) exacerbation Status: Acute Plan: XOPENEX NEB TX, SOLU-MEDROL 80MG IV Q8H, CONTINUE TO MONITOR (2) Acute bronchitis Qualifiers: Bronchitis organism: unspecified organism Qualified Code(s): J20.9 - Acute bronchitis, unspecified Status: Acute Plan: ROCEPHIN 1GM IV DAILY, CIPRO 200MG IV Q12H, CONTINUE TO MONITOR
[2017-04-17] MEDS: AMBIEN PO PRN (20:23)
[2017-04-18] MEDS: SOLU-Medrol 40 MG VIAL IVP SCH ×2 (02:20→10:29)
[2017-04-18] MEDS: NS 1000 ML 1,000 ML IV SCH (05:13)
[2017-04-18 05:52] LABS: ALANINE AMINOTRANSFERASE 14 Units/L (12-78); ALBUMIN 2.8 g/dL (3.4-5.0); ALKALINE PHOSPHATASE 81 Units/L (46-116); ASPARTATE AMINO TRANSFERASE 14 Units/L (15-37); BLOOD UREA NITROGEN 11 mg/dL (7-18); CALCIUM 8.4 mg/dL (8.5-10.1); CARBON DIOXIDE 21.9 mmol/L (21-32); CHLORIDE 108 mmol/L (98-107); COR CA(FOR HYPOALB) 9.4 mg/dL (8.5-10.1); CREATININE 0.83 mg/dL (0.55-1.02); SODIUM 141 mmol/L (136-145); TOTAL PROTEIN 6.3 g/dL (6.4-8.2); eGFR BLACK RACES > 60 (>60); eGFR NON BLACK RACES > 60 (>60)
--- NOTE | 2017-04-18 06:15 | RAD ---
HISTORY: Shortness of breath Study: Chest AP portable Comparison: 04/17/2017 Findings: The heart is enlarged. No congestive heart failure is noted. No acute alveolar infiltrates or pleural effusions are identified. Bibasilar subsegmental atelectasis is identified. The bony thorax is unrem arkable. IMPRESSION: Cardiomegaly without congestive heart failure Bibasilar subsegmental atelectasis Reported By:
[2017-04-18 06:22] LABS: BASOPHILS # (AUTO) 0.1 X10^3/uL (0.0-0.1); BASOPHILS % (AUTO) 0.3 % (0.2-1.0); HEMATOCRIT 30.1 % (36.0-47.0); HEMOGLOBIN 9.6 g/dL (12.0-16.0); LYMPHOCYTES # (AUTO) 2.4 X10^3/uL (1.3-2.9); LYMPHOCYTES % (AUTO) 10.3 % (21.0-51.0); MEAN CORPUSCULAR HEMOGLOBIN 22.5 pg (27.0-34.0); MEAN CORPUSCULAR HGB CONC 31.9 g/dL (33.0-35.0); MEAN CORPUSCULAR VOLUME 70.6 fL (80.0-100.0); MEAN PLATELET VOLUME 7.7 fL (7.4-11.0); MONOCYTES # (AUTO) 1.2 x10^3/uL (0.3-0.8); NEUTROPHILS # (AUTO) 19.5 x10^3/uL (2.2-4.8); NEUTROPHILS % (AUTO) 84.4 % (42.0-75.0); PLATELET COUNT 382 X10^3/uL (150.0-450.0); RED BLOOD COUNT 4.26 X10^6/uL (3.5-5.4); RED CELL DISTRIBUTION WIDTH 17.5 % (11.6-16.5); WHITE BLOOD COUNT 23.1 X10^3/uL (3.6-10.0)
[2017-04-18] MEDS ORDERED: K-RIDER 10 MEQ/NS 100 ML 10 MEQ/100 ML BAG IV PRN (06:52)
[2017-04-18] MEDS ORDERED: MAG-OX TAB PO PRN (06:52)
[2017-04-18] MEDS ORDERED: K-LYTE EFFERVESCENT PO PRN (06:52)
[2017-04-18] MEDS: MORPHINE SULFATE INJ 2 MG INJ IVP PRN (07:25)
[2017-04-18] MEDS: PHENERGAN INJ 25 MG IV PRN (07:26)
[2017-04-18] MEDS: MAGNESIUM SULFATE 1 GM/100 mL PREMIX 1 GM/100 ML BAG IV PRN ×2 (07:34→09:16)
[2017-04-18 07:36] LABS: HYPOCHROMASIA SLIGHT; PLATELET MORPHOLOGY COMMENT NORMAL (NORMAL)
[2017-04-18] MEDS: XOPENEX 1.25 MG/3 ML NEBULE NEB SCH (09:10)
[2017-04-18] MEDS: CIPRO IV 200 MG PREMIX* 200 MG/100 ML BAG IV SCH (09:16)
[2017-04-18] MEDS: ROCEPHIN VIAL 1 GM 1 GM in NS 100 ML IV + SPIKE MINIBAG* 100 ML IV SCH (09:16)
[2017-04-18 12:53] VITALS: BP 135/96
== END 2017-04-18 12:25 | disposition home or self-care (01) ==
LOC: ER 09:46 → MED/SURG 13:26
PROVIDERS: ADMIT Internal Medicine; ATTEND Internal Medicine
DX: J45.901 Unspecified asthma with (acute) exacerbation (principal); J20.8 Acute bronchitis due to other specified organisms; R00.1 Bradycardia, unspecified; R06.02 Shortness of breath
CPT/HCPCS: 36415; 36600; 71010; 80053; 81001; 82803; 83735; 85025; 94640; 94760; 96365; 96372; 96374; 99284; A4222; Q0177; G0378; J0696; J0744; J2270; J2550; J2920; J2930; J7644